=== PATIENT | male | born 1975 | race African-American/Black ===

== ENCOUNTER 2016-05-22 12:40 | Inpatient (IN) | payer MEDICAID ==
[2016-05-22] MEDS ORDERED: SODIUM CHLORIDE 0.9% 3 ML FLUSH FLUSH PRN (12:51)
[2016-05-22 13:15] LABS: AUTOMATED BASOPHIL 0.3 % (0-2); AUTOMATED EOSINOPHIL 4.4 % (0-5); AUTOMATED LYMPH 28.9 % (17-44); AUTOMATED MONOCYTE 10.9 % (3-10); AUTOMATED NEUTROPHIL 55.5 % (45-76); MPV 7.6 fL (7.4-10.4)
--- NOTE | 2016-05-22 13:19 | EDPRACDOC ---
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) - History of Present Illness Exact Onset of Symptoms: Known Onset: [id number] Date Symptoms Started: 05/22/16 Time Symptoms Started: 10:45 Symptoms Started: Reports: Suddenly Symptoms: Reports: Difficulty walking (LEFT LEG AND LEFT ARM AND HAND) Symptoms Description: Constant Symptom Severity: Reports: Unable to performs ADL's Weakness: Left: Arm (WRIST FLEXED AND FINGERS DRAWING IN), Leg (WEAK PLANTAR FLEXION ) Pain Quality: Reports: mild Associated Symptoms: Reports: Weakness (LEFT ARM HAND AND LEG) HPI: PT STATES WOKE UP AROUND 930 THIS AM FELT FINE THEN AROUND 1045 STARTED HAVING DRAWING OF LEFT HAND AND COULDNT SPREAD FINGERS APART OR FLEX OR EXTEND WRIST AND LEFT FOOT WEAKNESS WHEN TRYING TO WALK. PT IS SPEAKING CLEARLY WITHOUT FACIAL PARALYSIS. PT DOES SEEM ANXIOUS AND GETS UPSET WHEN HE CANT MOVE HIS LEFT HAND LIKE NORMAL. <Prerna Park - Last Filed: 05/22/16 15:54> - General Stated Complaint: STROKE SYMPTOMS Time Seen by Provider: 05/22/16 12:51 Allergies/Adverse Reactions: Allergies Allergy/AdvReac Type Severity Reaction Status Date / Time No Known Allergies Allergy Verified 05/22/16 13:28 Home Medications: Ambulatory Orders No Home Medications 05/22/16 ED Past Medical History - History Reviewed Yes Nurses notes reviewed and agree except as marked Travel Outside of [place] in the Last 3 Months?: No - Patient Medical History Neurological History: Reports: Cerebrovascular Accident (2006 IWTH MINOR LEFT SIDED PARALYSIS IN HAND AND LEG) Surgical History: Reports: Other (CARDIAC SURGERY) - Social Medical History Smoking Status: Heavy tobacco smoker (5 or more cigarettes/day or daily pipe/ cigar) ETOH: None Substance Abuse: None Lives With: Spouse Lives In: Home <Prerna Park - Last Filed: 05/22/16 15:54> EDM Review of Systems - Review of Systems ROS Negative Except as Marked: Yes All systems reviewed and were negative except as marked Constitutional: No Symptoms Reported. negative: Fever, Chills, Weakness, Fatigue, Loss of Appetite Eyes: No Symptoms Reported. negative: Redness, Blurred Vision, Double Vision, Discharge, Pain, Light Sensitive, Photophobia Ears: No Symptoms Reported. negative: Pain, Hearing Loss, Drainage, Ear Pulling Throat: No Symptoms Reported. negative: Pain, Swelling Nose: No Symptoms Reported. negative: Congestion, Bleeding, Discharge, Injection, Swelling, Deformity, Ecchymosis, Tender, Abrasion, Laceration Mouth: No Symptoms Reported. negative: Pain, Drooling Respiratory: No Symptoms Reported. negative: Cough, Brassy Cough, Barky Cough, Shortness of Breath, Wheezing, Hemoptysis Cardiovascular: No Symptoms Reported. negative: Chest Pain, Palpitations, Syncope, Edema, Orthopnea, PND, Skin Mottling, Cyanosis Gastrointestinal: No Symptoms Reported. negative: Pain, Constipation, Nausea, Vomiting, Diarrhea, Melena, Formula Intolerance Genitourinary: No Symptoms Reported. negative: Dysuria, Hematuria, Frequency, Discharge, Bleeding, Testicular Pain, Neurological: Other (WEAKNESS OF LEFT ARM HAND AND LEG). negative: Dizziness, Gait Difficulty, Headache, Numbness, Seizure, Speech Difficulty, Weakness Musculoskeletal: No Symptoms Reported. negative: Neck, Chestwall, Ribs, Back, Shoulder, Arm, Elbow, Forearm, Wrist, Hand, Pelvis, Hip, Femur, Knee, Leg, Ankle , Foot Integumentary: No Symptoms Reported. negative: Itching, Rash, Bruising, Wound Allergic/Immunologic: No Symptoms Reported. negative: Hives, Itching Hematologic: No Symptoms Reported. negative: Lymphadenopathy, Easy Bruising, Easy Bleeding Endocrine: No Symptoms Reported. negative: Weight Gain, Weight Loss Psychiatric: No Symptoms Reported. negative: Anxiety, Depression, Hallucinations, Insomnia, Suicidal <Prer[place] Park - Last Filed: 05/22/16 15:54> - Physical Exam Last recorded Vital Signs: Last Vital Signs Temp 98.4 F 05/22/16 13:24 Pulse 92 05/22/16 13:28 Resp 18 05/22/16 13:28 BP 132/80 05/22/16 13:28 Pulse Ox 96 05/22/16 13:28 Oxygen Pulse Oxygen Saturation 96 O2 Device Oxygen Flow Rate Fraction of Inspired Oxygen ( FIO2) <Keri Carr - Last Filed: 05/22/16 15:12> - Physical Exam Constitutional: No apparent distress, Alert (Awake) Oriented to: Time, Person, Place Last recorded Vital Signs: Oxygen Pulse Oxygen Saturation O2 Device Oxygen Flow Rate Fraction of Inspired Oxygen ( FIO2) - HEENT Head: Normal ( normocephalic) Eye Exam: Normal (PERRL, EOMI, Sclera white) Oropharynx: Normal (Pharynx:Moist without exudate,Gums-no swelling) Tympanic Membrane: Normal ENT EAC: Normal TMJ: Normal Nose: No Symptoms Reported (septum midline) Neck: Normal (FROM, trachea at midline) - Respiratory/Cardiovascular Respiratory: Normal - CTA (BBS clear to auscultation without adventitious sounds ) Cardiovascular: Normal (RRR without murmur, gallop or rub) - GI Auscultation: Normal (NABS) Palpation: Normal (Soft,No rebound or guarding, non distended) Tenderness: Non tender Jackson's Sign: Negative - Bladder: Normal - Musculoskeletal Back: Normal (Non-Tender) Extremities: Normal (Normal tone, Pulses 2+ No cyanosis or edema, FROM) - Integumentary Skin: Normal, Warm, Dry Lymphatics: Normal (no adenopathy) - Neurologic Memory Impaired: Normal Motor Function: Abnormal (LEFT ARM HAND AND LEG) Cranial Nerve: Normal (CN II-X11 intact sensation, strength 5/5) Cerebellar: Ataxia (LEFT ARM AND HAND), Past-Pointing (LEFT ARM AND HAND) Mood Description: Anxious Thought: Coherent Perception: Normal <[place] - Last Filed: 05/22/16 15:54> NIH Stroke Scale Initial Evaluation Level of Consciousness: Alert LOC- Question: Answers Both Correctly LOC Commands: Both Task Correctly Best Gaze: Normal Visual: No Visual Loss Facial Palsy: Normal Movement Motor Arm LEFT: Drift (MILD) Motor Arm RIGHT: No Drift Motor Leg LEFT: No Drift Motor Leg RIGHT: No Drift Limb Ataxia: Present in One Limb (LEFT) Sensory: Normal Best Language: No Aphasia Dysarthria: Normal Extinction and Inattention: No Abnormality (Neglect) Score: 2out of42 <Prerna Park - Last Filed: 05/22/16 15:54> - Action Was an Antithrombotic given in the ED?: Yes Is patient a candidate for lytic therapy?: No - Re-evaluation Re-evaluation 2 Re-evaluation Time: 15:14 (NO CHANGE) - Results 05/22/16 13:05 05/22/16 13:05 WBC 7.5 xk/uL (3.8-10.8) 05/22/16 13:05 RBC 5.46 xM/uL (4.70-6.10) 05/22/16 13:05 Hgb 15.0 g/dL (14.0-18.0) 05/22/16 13:05 Hct 45.8 % (42-52) 05/22/16 13:05 MCV 84 fL (80-94) 05/22/16 13:05 MCH 27.5 pg (27-32) 05/22/16 13:05 MCHC 32.8 g/dl (33-36) L 05/22/16 13:05 RDW 13.9 % (11.5-14.5) 05/22/16 13:05 Plt Count 263 xk/uL (130-400) 05/22/16 13:05 MPV 7.6 fL (7.4-10.4) 05/22/16 13:05 Neut % (Auto) 55.5 % (45-76) 05/22/16 13:05 Lymph % (Auto) 28.9 % (17-44) 05/22/16 13:05 [place] % (Auto) 10.9 % (3-10) H 05/22/16 13:05 Eos % (Auto) 4.4 % (0-5) 05/22/16 13:05 Baso % (Auto) 0.3 % (0-2) 05/22/16 13:05 Absolute Neuts (auto) 4.13 xk/uL (1.7-8.2) 05/22/16 13:05 Absolute Lymphs (auto) 2.10 xk/uL (0.65-4.75) 05/22/16 13:05 PT 10.0 SEC (9.2-11.2) 05/22/16 13:05 INR 1.0 05/22/16 13:05 APTT 23.6 SEC (22-35) 05/22/16 13:05 Sodium 143 mEq/L (137-146) 05/22/16 13:05 Potassium 3.6 mEq/L (3.5-5.1) 05/22/16 13:05 Chloride 110 mEq/L (98-107) H 05/22/16 13:05 Carbon Dioxide 24 mMOL/L (22-33) 05/22/16 13:05 Anion Gap 13 mEq/L (8-16) 05/22/16 13:05 BUN 10 MG/DL (9-20) 05/22/16 13:05 Creatinine 0.70 MG/DL (0.66-1.25) 05/22/16 13:05 Estimated GFR (MDRD) > 60 mL/min (>=60) 05/22/16 13:05 Glucose 107 MG/DL (70-99) H 05/22/16 13:05 Calculated Osmolality 274 MOs/Kg (270-290) 05/22/16 13:05 Calcium 9.0 MG/DL (8.4-10.2) 05/22/16 13:05 Corrected Calcium 9.4 MG/DL (8.4-10.2) 05/22/16 13:05 Total Bilirubin 0.5 MG/DL (0.2-1.3) 05/22/16 13:05 AST 22 IU/L (17-59) 05/22/16 13:05 ALT 38 IU/L (21-72) 05/22/16 13:05 Alkaline Phosphatase 92 IU/L (38-126) 05/22/16 13:05 Troponin I < 0.01 ng/mL (<.04) 05/22/16 13:05 Csr-A-Tgjmexbbgly Pept 101 pg/mL (0-450) 05/22/16 13:05 Total Protein 6.6 G/DL (6.3-8.2) 05/22/16 13:05 Albumin 3.6 G/DL (3.5-5.0) 05/22/16 13:05 Urine Color Yellow 05/22/16 13:30 Urine Clarity Clear 05/22/16 13:30 Urine pH 5.0 (5.0-8.0) 05/22/16 13:30 Ur Specific [place] 1.010 (1.003-1.035) 05/22/16 13:30 Urine Protein Neg (NEG/TRACE) 05/22/16 13:30 Urine Glucose (UA) Neg (NEGATIVE) 05/22/16 13:30 Urine Ketones Neg (NEGATIVE) 05/22/16 13:30 Urine Occult Blood Neg (NEG/TRACE) 05/22/16 13:30 Urine Nitrite Neg (NEGATIVE) 05/22/16 13:30 Urine Bilirubin Neg (NEGATIVE) 05/22/16 13:30 Urine Urobilinogen <2.0 MG/DL (0-1) 05/22/16 13:30 Ur Leukocyte Esterase Neg (NEGATIVE) 05/22/16 13:30 Urine RBC 0-2 (0-2) 05/22/16 13:30 Urine Bacteria Few (NEG/FEW) 05/22/16 13:30 Urine Mucus Occ (NEG/OCC) 05/22/16 13:30 Urine Opiates Screen Neg (NEGATIVE) 05/22/16 13:30 Ur Oxycodone Screen Neg (NEGATIVE) 05/22/16 13:30 Urine Methadone Screen Neg (NEGATIVE) 05/22/16 13:30 Ur Barbiturates Screen Neg (NEGATIVE) 05/22/16 13:30 Ur Tricyclics Screen Neg (NEGATIVE) 05/22/16 13:30 Ur Phencyclidine Scrn Neg (NEGATIVE) 05/22/16 13:30 Ur Amphetamines Screen Neg (NEGATIVE) 05/22/16 13:30 U Methamphetamines Scrn Neg (NEGATIVE) 05/22/16 13:30 Urine MDMA Screen Neg (NEGATIVE) 05/22/16 13:30 U Benzodiazepines Scrn Neg (NEGATIVE) 05/22/16 13:30 Urine Cocaine Screen Neg (NEGATIVE) 05/22/16 13:30 Ur THC Screen *positive* (NEGATIVE) H 05/22/16 13:30 Lab Results 05/22/16 05/22/16 05/22/16 13:30 13:30 13:05 WBC RBC Hgb Hct MCV MCH MCHC RDW Plt Count MPV Neut % (Auto) Lymph % (Auto) [place] % (Auto) Eos % (Auto) Baso % (Auto) Absolute Neuts (auto) Absolute Lymphs (auto) PT 10.0 INR 1.0 APTT 23.6 Sodium Potassium Chloride Carbon Dioxide Anion Gap BUN Creatinine Estimated GFR (MDRD) Glucose Calculated Osmolality Calcium Corrected Calcium Total Bilirubin AST ALT Alkaline Phosphatase Troponin I [id number]-Eqfdolixael Pept Total Protein Albumin Urine Color Yellow Urine Clarity Clear Urine pH 5.0 Ur Specific [place] 1.010 Urine Protein Neg Urine Glucose (UA) Neg Urine Ketones Neg Urine Occult Blood Neg Urine Nitrite Neg Urine Bilirubin Neg Urine Urobilinogen <2.0 Ur Leukocyte Esterase Neg Urine RBC 0-2 Urine Bacteria Few Urine Mucus Occ Urine Opiates Screen Neg Ur Oxycodone Screen Neg Urine Methadone Screen Neg Ur Barbiturates Screen Neg Ur Tricyclics Screen Neg Ur Phencyclidine Scrn Neg Ur Amphetamines Screen Neg U Methamphetamines Scrn Neg Urine MDMA Screen Neg U Benzodiazepines Scrn Neg Urine Cocaine Screen Neg Ur THC Screen *positive* H 05/22/16 05/22/16 13:05 13:05 WBC 7.5 RBC 5.46 Hgb 15.0 Hct 45.8 MCV 84 MCH 27.5 MCHC 32.8 L RDW 13.9 Plt Count 263 MPV 7.6 Neut % (Auto) 55.5 Lymph % (Auto) 28.9 [place] % (Auto) 10.9 H Eos % (Auto) 4.4 Baso % (Auto) 0.3 Absolute Neuts (auto) 4.13 Absolute Lymphs (auto) 2.10 PT INR APTT Sodium 143 Potassium 3.6 Chloride 110 H Carbon Dioxide 24 Anion Gap 13 BUN 10 Creatinine 0.70 Estimated GFR (MDRD) > 60 Glucose 107 H Calculated Osmolality 274 Calcium 9.0 Corrected Calcium 9.4 Total Bilirubin 0.5 AST 22 ALT 38 Alkaline Phosphatase 92 Troponin I < 0.01 Tmj-K-Yiqyjprzzgl Pept 101 Total Protein 6.6 Albumin 3.6 Urine Color Urine Clarity Urine pH Ur Specific [place] Urine Protein Urine Glucose (UA) Urine Ketones Urine Occult Blood Urine Nitrite Urine Bilirubin Urine Urobilinogen Ur Leukocyte Esterase Urine RBC Urine Bacteria Urine Mucus Urine Opiates Screen Ur Oxycodone Screen Urine Methadone Screen Ur Barbiturates Screen Ur Tricyclics Screen Ur Phencyclidine Scrn Ur Amphetamines Screen U Methamphetamines Scrn Urine MDMA Screen U Benzodiazepines Scrn Urine Cocaine Screen Ur THC Screen <Keri Carr N - Last Filed: 05/22/16 15:12> - Differential Diagnosis CVA, Electrolyte disorder, Hypoglycemia, Medication toxicity, Drug overdose, SAH , TIA - Action Has patient received an Antithrombotic in the last 24hrs?: No Stroke Discharge Education: Risk Factors, Seeking Emerg. Treatment, Warning Signs/Symptoms, Medications at Discharge, Follow Up after Discharge - Re-evaluation Re-evaluation 1 Re-evaluation Time: 15:00 (NO CHANGE IN SYMPTOMS, PERSISTENT LEFT UPPER AND LOWER EXTREMITY WEAKNESS) - Results 05/22/16 13:05 05/22/16 13:05 - EKG EKG #1 EKG Time: 13:08 -: Yes EKG interpreted by me Rate: bpm: 93 [place]: Normal Rhythm: NSR Block: None Hypertrophy: None ST: Normal - Diagnostic Imaging CT HEAD Image interpreted by: Radiologist IMPRESSION: Normal head CT. <Prer[place] - Last Filed: 05/22/16 15:54> - Departure Disposition: Admit IP To This Hospital Education/Counseling Given To: Patient, Family Member Education/Counseling Given Regarding: Diagnosis, Treatment, Prognosis Decision to Admit Time: 15:16 Decision to admit date: 05/22/16 Decision to admit: from ED - Physician Consulted Hospitalist Time Called: 15:13 Provider Called: Israel Wilder Time Client Resource Specialist Returned Call: 15:16 <Keri Carr - Last Filed: 05/22/16 15:12> <Prer[place] - Last Filed: 05/22/16 15:54> - Departure Final Diagnosis: CVA - cerebrovascular accident due to cerebral artery occlusion Instructions: Stroke (GEN) Referrals: Kaylen Mcnulty DIRECTOR OF IT OPERATIONS [Primary Care Provider] - As Needed
--- NOTE | 2016-05-22 13:25 | DIRPT ---
CLINICAL DATA: Left arm weakness. EXAM: CT HEAD WITHOUT CONTRAST TECHNIQUE: Contiguous axial images were obtained from the base of the skull through the vertex without intravenous contrast. COMPARISON: CT scan of June 01, 2010. FINDINGS: Bony calvarium appears intact. No mass effect or midline shift is noted. Ventricular size is within normal limits. There is no evidence of mass lesion, hemorrhage or acute infarction. IMPRESSION: Normal head CT. Electronically Signed By: Rodrigue Wilder Jr, M.D. On: 05/22/2016 13:22
[2016-05-22 13:26] LABS: BLOOD UREA NITROGEN 10 MG/DL (9-20); CALC CORRECTED 9.4 MG/DL (8.4-10.2); CALCULATED OSMOLALITY 274 MOs/Kg (270-290); CHLORIDE 110 mEq/L (98-107); GLUCOSE 107 MG/DL (70-99); PARTIAL THROMB. TIME 23.6 SEC (22-35); SODIUM LEVEL 143 mEq/L (137-146); TOTAL PROTEIN 6.6 G/DL (6.3-8.2)
[2016-05-22 13:38] LABS: ALL NEG? NO
--- NOTE | 2016-05-22 13:43 | DIRPT ---
CLINICAL DATA: Weakness EXAM: PORTABLE CHEST 1 VIEW COMPARISON: 02/10/2014 FINDINGS: The heart size and mediastinal contours are within normal limits. Both lungs are clear. The visualized skeletal structures are unremarkable. IMPRESSION: No active disease. Electronically Signed By: Baltazar Napier M.D. On: 05/22/2016 13:40
[2016-05-22 13:45] LABS: MDMA* NEG (NEGATIVE); METHAMPHETAMINES NEG (NEGATIVE)
[2016-05-22 13:46] LABS: OXYCODONE NEG (NEGATIVE)
[2016-05-22 14:19] LABS: LEUKOCYTES/URINE NEG (NEGATIVE); NITRITE/URINE NEG (NEGATIVE); RBC/URINE 0-2 (0-2); URINE OCCULT BLOOD NEG (NEG/TRACE)
[2016-05-22] MEDS ORDERED: ASPIRIN 300 MG SUPP PR ONE (14:55)
[2016-05-22] MEDS ORDERED: ONDANSETRON HCL 4 MG/2 ML VIAL IV PRN (15:38)
[2016-05-22] MEDS ORDERED: ACETAMINOPHEN 325 MG/TAB TABLET PO PRN (15:38)
[2016-05-22] MEDS ORDERED: ZOLPIDEM TARTRATE 5 MG TAB PO PRN (15:39)
--- NOTE | 2016-05-22 16:15 | HISTPHYS ---
- Chief Complaint Left-sided weakness, tingling - History of Present Illness This is a healthy 40-year-old male with a prior history of suspected CVA in 2006 currently not on any medications who is being admitted to the hospital this afternoon due to recurrent left arm tingling and weakness, as well as gait instability. The patient tells me that he has been in his usual state of health , without any significant neurologic deficits, when he woke up this morning he had some tingling in his left hand, and over the next hour or so it progressed to weakness and flexion of his fingers, which she could extend actively with his right hand, but not passively with his left hand. Interestingly, he tells me that it is a similar thing happened in 2006, at which time he was admitted to [facility] and was found on MRI to have "a pattern" on the left side of his brain that could predispose him to strokes at any time. He also says that he had some sort of a study where they put a probe down his mouth to make sure that he did have a hole in his heart. He says that he was not placed on any medication at the time, and did follow up with a neurologist as an outpatient once, but after was losses insurance later that year, so has not seen a neurologist since 2006. Denies any chest pain, shortness of breath, nausea, vomiting, fevers, chills, abdominal pain, diarrhea or constipation. No rashes on the skin, no sick contacts. No drug IV abuse. No therapies tried prior to arrival, patient was not given tPA. - Medical History Neurological History: Reports: Cerebrovascular Accident (2006 IWTH MINOR LEFT SIDED PARALYSIS IN HAND AND LEG) - Surgical History Reports: Other (CARDIAC SURGERY) - Medictions/Allergies Allergies No Known Allergies Allergy (Verified 05/22/16 13:28) Home Medications No Home Medications 05/22/16 - Social History Smoking Status: Heavy tobacco smoker (5 or more cigarettes/day or daily pipe/ cigar) - Review of Systems Yes All systems reviewed and were negative except as marked (And as mentioned in the history of present illness above.) - Physical Exam Vital Signs: Initial Vitals Temperature 98.4 F 05/22/16 13:24 Pulse Rate 101 05/22/16 13:24 Respiratory Rate 21 05/22/16 13:24 Blood Pressure 136/78 05/22/16 13:24 Pulse Oxygen Saturation 98 05/22/16 13:24 Constitutional: Alert (Awake, Fully oriented, well appearing. No apparent distress) Oriented to: Time, Person, Place - HEENT Head: Normal (normocephalic,atraumatic, trachea midline) Eye: Normal (EOMI, Sclera white) Oropharynx: Normal (moist) Nose: No Symptoms Reported (without discharge or bleeding) Respiratory: Normal - CTA (Clear to auscultation bilaterally, no wheezing,rales or rhonchi. No use of accessory muscles) Cardiovascular: Normal (RRR, no murmurs, rubs or gallops) - GI Palpation: Normal (soft, non distended and nontender) - Musculoskeletal Extremities: Normal (normal tone, no cyanosis or edema) - Integumentary Skin: Normal (no rashes or lesions) - Neurologic Cranial Nerve: Normal (CN II-XII intact) Mood Description: Normal (Fully oriented and appropiate affect) Patient was not ambulated, though he does seem to have 5/5 strength in his lower extremities. Sensation is intact in lower extremities. He has subjective numbness in the left hand, especially on the lateral side including the thumb and index finger. Left hand can be passively open completely with full extension of the fingers, however he is unable to extend them on his own, and they rest in a slightly flexed position. No facial droop, slurred speech. - Focused CV Perfusion Exam Vital Signs: Last Vital Signs Temp 98.4 F 05/22/16 13:24 Pulse 90 05/22/16 14:59 Resp 18 05/22/16 14:59 BP 138/75 05/22/16 14:59 Pulse Ox 97 05/22/16 14:59 - Lab Results Laboratory Tests 05/22/16 05/22/16 05/22/16 13:05 13:05 13:05 WBC 7.5 Hgb 15.0 INR 1.0 Potassium 3.6 Chloride 110 H BUN 10 Creatinine 0.70 Alkaline Phosphatase 92 Troponin I < 0.01 - Diagnostic Findings Chest x-ray and CT of the head done in the emergency department this afternoon without any acute abnormality. - Assessment (1) Tingling of left upper extremity R20.2 - PARESTHESIA OF SKIN Acute Patient tells a strange story of perhaps having a CVA in the past, could also be some other neurologic phenomenon such as plaques or evidence of multiple scrotal or Drum[place]. Although the fact that he had what sounds like a transesophageal echo make a sound like they were looking for embolic source of his prior stroke. In any case, CT head in the emergency department today does not show evidence of any prior strokes or any other abnormality. Will admit to the hospital using stroke evidence based care order set, keep the patient NPO until seen by speech therapy, will also have him be seen by physical and occupational therapies. He was given the aspirin rectally in the emergency department, will continue aspirin daily, as well as a low-dose statin. Will check lipids, carotid Dopplers and an MRI in the morning. Depending on findings of the MRI, could consider ECHO of the heart. Could also consider Neurology consultation, have also ordered records from [facility] where he was diagnosed with his previous intracranial abnormality. (2) CVA - cerebrovascular accident due to cerebral artery occlusion I63.50 - CEREB INFRC DUE TO UNSP OCCLS OR STENOS OF UNSP CEREB ARTERY Acute Case Care Discussed with: Patient, Family, Nursing Staff Total Time: 42
[2016-05-22 17:09] VITALS: BMI 22.8
[2016-05-22] MEDS: ATORVASTATIN 20 MG TAB PO SCH ×2 (17:53→18:21)
[2016-05-22] MEDS: SODIUM CHLORIDE 0.9% 3 ML FLUSH FLUSH SCH (17:54)
[2016-05-22] MEDS ORDERED: ENOXAPARIN 40 MG/0.4 ML PFS SQ SCH (18:00)
[2016-05-22] MEDS ORDERED: Vaccine Screening Complete SCH (18:00)
[2016-05-23 04:55] LABS: MPV 8.4 fL (7.4-10.4)
[2016-05-23 05:06] LABS: BLOOD UREA NITROGEN 9 MG/DL (9-20); CALCIUM 9.2 MG/DL (8.4-10.2); CALCULATED OSMOLALITY 269 MOs/Kg (270-290); CHLORIDE 107 mEq/L (98-107); GLUCOSE 81 MG/DL (70-99); SODIUM LEVEL 141 mEq/L (137-146)
[2016-05-23] MEDS: SODIUM CHLORIDE 0.9% 3 ML FLUSH FLUSH SCH (06:22)
[2016-05-23] MEDS ORDERED: PNEUMOCOCCAL 0.5 ML VIAL IM ONE (08:00)
[2016-05-23] MEDS ORDERED: FLU VACCINE (Afluria) 0.5 ML DOSE IM ONE (08:00)
--- NOTE | 2016-05-23 08:26 | DIRPT ---
CLINICAL DATA: Left-sided weakness EXAM: BILATERAL CAROTID DUPLEX ULTRASOUND TECHNIQUE: Saldaña scale imaging, color Doppler and duplex ultrasound were performed of bilateral carotid and vertebral arteries in the neck. COMPARISON: None. FINDINGS: Criteria: Quantification of carotid stenosis is based on velocity parameters that correlate the residual internal carotid diameter with NASCET-based stenosis levels, using the diameter of the distal internal carotid lumen as the denominator for stenosis measurement. The following velocity measurements were obtained: RIGHT ICA: 80 cm/sec CCA: 146 cm/sec SYSTOLIC ICA/CCA RATIO: 0.6 DIASTOLIC ICA/CCA RATIO: 1.1 ECA: 91 cm/sec LEFT ICA: 79 cm/sec CCA: 144 cm/sec SYSTOLIC ICA/CCA RATIO: 0.6 DIASTOLIC ICA/CCA RATIO: 1.0 ECA: 81 cm/sec RIGHT CAROTID ARTERY: Little if any plaque in the bulb. Low resistance internal carotid Doppler pattern. RIGHT VERTEBRAL ARTERY: Antegrade. Normal Doppler pattern. LEFT CAROTID ARTERY: Minimal soft plaque in the bulb. Low resistance internal carotid Doppler pattern. LEFT VERTEBRAL ARTERY: Antegrade. Normal Doppler pattern. Additional findings: Thyroid gland is heterogeneous bilaterally. There is a 6 x 6 x 11 mm hypoechoic nodule in the right lower pole posteriorly. IMPRESSION: Less than 50% stenosis in the right and left internal carotid arteries. There is an 11 mm hypoechoic nodule in the right lower pole of the thyroid gland. A complete thyroid ultrasound was not performed. Complete thyroid ultrasound is recommended. Recommendations concerning the single nodule are as follows: Findings do not meet current SRU consensus criteria for biopsy. Follow-up by clinical exam is recommended. If patient has known risk factors for thyroid carcinoma, consider follow-up ultrasound in 12 months. If patient is clinically hyperthyroid, consider nuclear medicine thyroid uptake and scan.Reference: Management of Thyroid Nodules Detected at [place]: Society of Radiologists in Ultrasound Consensus Conference Statement. Radiology 2005; [id number]. Electronically Signed By: Baltazar Napier M.D. On: 05/23/2016 08:23
[2016-05-23 08:37] VITALS: TEMP 98
--- NOTE | 2016-05-23 10:11 | GENMEDPROG ---
Chief Complaint: Admitted with possible CVA Subjective Note: 40-year-old gentleman history of prior stroke records are pending from [facility]. Had a episode yesterday similar to his previous his left upper extremity is having some difficulties today. He is awaiting physical therapy evaluation. Carotid Dopplers revealed an abnormality of his thyroid we are checking his tsh and ordering a dedicated thyroid ultrasound. Notes Reviewed: Yes Events from last night noted and discussed with Clinical Staff Current Medication List: Reviewed Currently: Reports: Other (weak LUE) DVT Prophylaxis: Yes - Physical Examination Vital Signs and I&O: Last Vital Signs Temp 98 F 05/23/16 08:37 Pulse 80 05/23/16 08:37 Resp 20 05/23/16 08:37 BP 124/56 L 05/23/16 08:37 Pulse Ox 96 05/23/16 08:37 Oxygen Pulse Oxygen Saturation 96 O2 Device Room Air Oxygen Flow Rate Fraction of Inspired Oxygen ( FIO2) Intake & Output 05/20/16 05/21/16 05/22/16 05/23/16 23:59 23:59 23:59 23:59 Intake Total 205 Output Total 200 300 Balance -200 -95 Patient's weight 78.727 kg 78.471 kg General: Alert, Oriented x3, No acute distress, Well appearing, Well nourished HEENT: Normal (Normocephalic, atraumatic;EOMI.Sclera white, Nares patent, without discharge or bleeding. No oropharyngeal lesions or erythema. Mucous membranes are dry.) Neck: Non-tender, Full range of motion, Normal Trachea alignment, Normal inspection (No cervical lymphadenopathy. No supraclavicular lymphadenopathy.), No Masses palpable, Supple Respiratory: Normal - CTA (Clear to auscultation bilaterally, no wheezing,rales or rhonchi. No use of accessory muscles) Cardiovascular: Regular rate and rhythm (No bradycardia or tachycardia), Normal S1, No Gallops,Rubs/Murmurs, Normal S2, Good Pedal Pulses (DP pulses 2+ bilaterally) GI: Normal bowel sounds Extremities/Musculoskeletal: negative: Edema, Clubbing, Motor 5/5 throughout Skin: Warm,Dry and Intact, No rashes, No significant lesion Neurological: negative: Strength at 5/5 X4 ext (LUE weakness) Psych/Mental Status: Appropriate, Normal Affect Lab/DI/Studies Reviewed: Laboratory Results - last 24 hr 05/22/16 05/22/16 05/22/16 13:05 13:05 13:05 WBC 7.5 RBC 5.46 Hgb 15.0 Hct 45.8 MCV 84 MCH 27.5 MCHC 32.8 L RDW 13.9 Plt Count 263 MPV 7.6 Neut % (Auto) 55.5 Lymph % (Auto) 28.9 Meriwether % (Auto) 10.9 H Eos % (Auto) 4.4 Baso % (Auto) 0.3 Absolute Neuts (auto) 4.13 Absolute Lymphs (auto) 2.10 ESR PT 10.0 INR 1.0 APTT 23.6 Sodium 143 Potassium 3.6 Chloride 110 H Carbon Dioxide 24 Anion Gap 13 BUN 10 Creatinine 0.70 Estimated GFR (MDRD) > 60 Glucose 107 H Calculated Osmolality 274 Calcium 9.0 Corrected Calcium 9.4 Total Bilirubin 0.5 AST 22 ALT 38 Alkaline Phosphatase 92 Troponin I < 0.01 [id number]-Pkcibkuuyeh Pept 101 Total Protein 6.6 Albumin 3.6 Triglycerides Cholesterol LDL Cholesterol, Calc VLDL Cholesterol, Calc HDL Cholesterol Cholesterol/HDL Ratio Urine Color Urine Clarity Urine pH Ur Specific Carmichael Urine Protein Urine Glucose (UA) Urine Ketones Urine Occult Blood Urine Nitrite Urine Bilirubin Urine Urobilinogen Ur Leukocyte Esterase Urine RBC Urine Bacteria Urine Mucus Urine Opiates Screen Ur Oxycodone Screen Urine Methadone Screen Ur Barbiturates Screen Ur Tricyclics Screen Ur Phencyclidine Scrn Ur Amphetamines Screen U Methamphetamines Scrn Urine MDMA Screen U Benzodiazepines Scrn Urine Cocaine Screen Ur THC Screen 05/22/16 05/22/16 05/22/16 13:05 13:30 13:30 WBC RBC Hgb Hct MCV MCH MCHC RDW Plt Count MPV Neut % (Auto) Lymph % (Auto) Meriwether % (Auto) Eos % (Auto) Baso % (Auto) Absolute Neuts (auto) Absolute Lymphs (auto) ESR 1 PT INR APTT Sodium Potassium Chloride Carbon Dioxide Anion Gap BUN Creatinine Estimated GFR (MDRD) Glucose Calculated Osmolality Calcium Corrected Calcium Total Bilirubin AST ALT Alkaline Phosphatase Troponin I Tpi-A-Eawnvgwxpim Pept Total Protein Albumin Triglycerides Cholesterol LDL Cholesterol, Calc VLDL Cholesterol, Calc HDL Cholesterol Cholesterol/HDL Ratio Urine Color Yellow Urine Clarity Clear Urine pH 5.0 Ur Specific Carmichael 1.010 Urine Protein Neg Urine Glucose (UA) Neg Urine Ketones Neg Urine Occult Blood Neg Urine Nitrite Neg Urine Bilirubin Neg Urine Urobilinogen <2.0 Ur Leukocyte Esterase Neg Urine RBC 0-2 Urine Bacteria Few Urine Mucus Occ Urine Opiates Screen Neg Ur Oxycodone Screen Neg Urine Methadone Screen Neg Ur Barbiturates Screen Neg Ur Tricyclics Screen Neg Ur Phencyclidine Scrn Neg Ur Amphetamines Screen Neg U Methamphetamines Scrn Neg Urine MDMA Screen Neg U Benzodiazepines Scrn Neg Urine Cocaine Screen Neg Ur THC Screen *positive* H 05/22/16 05/22/16 05/23/16 17:05 19:50 03:50 WBC RBC Hgb Hct MCV MCH MCHC RDW Plt Count MPV Neut % (Auto) Lymph % (Auto) Meriwether % (Auto) Eos % (Auto) Baso % (Auto) Absolute Neuts (auto) Absolute Lymphs (auto) ESR PT INR APTT Sodium 141 Potassium 4.0 Chloride 107 Carbon Dioxide 26 Anion Gap 12 BUN 9 Creatinine 0.70 Estimated GFR (MDRD) > 60 Glucose 81 Calculated Osmolality 269 L Calcium 9.2 Corrected Calcium Total Bilirubin AST ALT Alkaline Phosphatase Troponin I < 0.01 < 0.01 Aac-Y-Kkddqjwtahi Pept Total Protein Albumin Triglycerides 90 Cholesterol 152 LDL Cholesterol, Calc 94.0 VLDL Cholesterol, Calc 18.0 HDL Cholesterol 40.0 Cholesterol/HDL Ratio 3.8 Urine Color Urine Clarity Urine pH Ur Specific Carmichael Urine Protein Urine Glucose (UA) Urine Ketones Urine Occult Blood Urine Nitrite Urine Bilirubin Urine Urobilinogen Ur Leukocyte Esterase Urine RBC Urine Bacteria Urine Mucus Urine Opiates Screen Ur Oxycodone Screen Urine Methadone Screen Ur Barbiturates Screen Ur Tricyclics Screen Ur Phencyclidine Scrn Ur Amphetamines Screen U Methamphetamines Scrn Urine MDMA Screen U Benzodiazepines Scrn Urine Cocaine Screen Ur THC Screen 05/23/16 03:50 WBC 7.8 RBC 5.32 Hgb 15.0 Hct 44.9 MCV 84 MCH 28.1 MCHC 33.3 RDW 13.6 Plt Count 252 MPV 8.4 Neut % (Auto) Lymph % (Auto) Meriwether % (Auto) Eos % (Auto) Baso % (Auto) Absolute Neuts (auto) Absolute Lymphs (auto) ESR PT INR APTT Sodium Potassium Chloride Carbon Dioxide Anion Gap BUN Creatinine Estimated GFR (MDRD) Glucose Calculated Osmolality Calcium Corrected Calcium Total Bilirubin AST ALT Alkaline Phosphatase Troponin I Bqy-N-Reeaxvithiu Pept Total Protein Albumin Triglycerides Cholesterol LDL Cholesterol, Calc VLDL Cholesterol, Calc HDL Cholesterol Cholesterol/HDL Ratio Urine Color Urine Clarity Urine pH Ur Specific Carmichael Urine Protein Urine Glucose (UA) Urine Ketones Urine Occult Blood Urine Nitrite Urine Bilirubin Urine Urobilinogen Ur Leukocyte Esterase Urine RBC Urine Bacteria Urine Mucus Urine Opiates Screen Ur Oxycodone Screen Urine Methadone Screen Ur Barbiturates Screen Ur Tricyclics Screen Ur Phencyclidine Scrn Ur Amphetamines Screen U Methamphetamines Scrn Urine MDMA Screen U Benzodiazepines Scrn Urine Cocaine Screen Ur THC Screen BILATERAL CAROTID DUPLEX ULTRASOUND TECHNIQUE: Saldaña scale imaging, color Doppler and duplex ultrasound were performed of bilateral carotid and vertebral arteries in the neck. COMPARISON: None. FINDINGS: Criteria: Quantification of carotid stenosis is based on velocity parameters that correlate the residual internal carotid diameter with NASCET-based stenosis levels, using the diameter of the distal internal carotid lumen as the denominator for stenosis measurement. The following velocity measurements were obtained: RIGHT ICA: 80 cm/sec CCA: 146 cm/sec SYSTOLIC ICA/CCA RATIO: 0.6 DIASTOLIC ICA/CCA RATIO: 1.1 ECA: 91 cm/sec LEFT ICA: 79 cm/sec CCA: 144 cm/sec SYSTOLIC ICA/CCA RATIO: 0.6 DIASTOLIC ICA/CCA RATIO: 1.0 ECA: 81 cm/sec RIGHT CAROTID ARTERY: Little if any plaque in the bulb. Low resistance internal carotid Doppler pattern. RIGHT VERTEBRAL ARTERY: Antegrade. Normal Doppler pattern. LEFT CAROTID ARTERY: Minimal soft plaque in the bulb. Low resistance internal carotid Doppler pattern. LEFT VERTEBRAL ARTERY: Antegrade. Normal Doppler pattern. Additional findings: Thyroid gland is heterogeneous bilaterally. There is a 6 x 6 x 11 mm hypoechoic nodule in the right lower pole posteriorly. IMPRESSION: Less than 50% stenosis in the right and left internal carotid arteries. There is an 11 mm hypoechoic nodule in the right lower pole of the thyroid gland. A complete thyroid ultrasound was not performed. Complete thyroid ultrasound is recommended. Recommendations concerning the single nodule are as follows: Findings do not meet current SRU consensus criteria for biopsy. Follow-up by clinical exam is recommended. If patient has known risk factors for thyroid carcinoma, consider follow-up ultrasound in 12 months. If patient is clinically hyperthyroid, consider nuclear medicine thyroid uptake and scan.Reference: Management of Thyroid Nodules Detected at US: Society of Radiologists in Ultrasound Consensus Conference Statement. Radiology 2005; 237:794-800. Electronically Signed By: Baltazar Napier M.D. On: 05/23/2016 08:23 - Plan Check TFTs checked thyroid ultrasound. Await MRI results. PT OT evaluation. Disposition Plan: Hopefully home Case Care Discussed with: Patient, Nursing Staff Education/Counseling Given To: Patient Education/Counseling Given Regarding: Diagnosis, Treatment, Prognosis, Follow Up , Disposition Plan Total Time: 45 minutes Critical Care: No Couseling Time (>50% in counseling/coordination): No
[2016-05-23 10:22] LABS: hTSH < 0.02 uIU/mL (0.5-4.67)
[2016-05-23 10:43] LABS: FREE T4 2.57 ng/dL (0.78-2.19)
[2016-05-23 11:56] VITALS: BP 132/76
[2016-05-23 15:00] VITALS: PULSE 90
--- NOTE | 2016-05-23 15:13 | DIRPT ---
CLINICAL DATA: 40-year-old male with left-sided weakness (left arm and wrist) upon waking yesterday. Subsequent encounter. EXAM: MRI HEAD WITHOUT AND WITH CONTRAST TECHNIQUE: Multiplanar, multiecho pulse sequences of the brain and surrounding structures were obtained without and with intravenous contrast. CONTRAST: 15 cc MultiHance. COMPARISON: 05/22/2016 CT. FINDINGS: No acute infarct. Remote posterior right frontal lobe infarct with encephalomalacia. No intracranial hemorrhage. No intracranial mass or abnormal enhancement. No hydrocephalus. Major intracranial vascular structures are patent. Orbital structures within normal limits. Polypoid opacification maxillary sinuses greater on left with 1.8 cm polypoid structure with may represent a retention cyst. Cervical medullary junction and pineal region unremarkable. Small pituitary gland probably an incidental finding. IMPRESSION: No acute infarct or intracranial hemorrhage. Remote small to moderate-size posterior right frontal lobe infarct with encephalomalacia. No intracranial mass or abnormal enhancement. Polypoid opacification maxillary sinuses greater on left with 1.8 cm polypoid structure with may represent a retention cyst. Electronically Signed By: Michael Del Rosario M.D. On: 05/23/2016 15:10
--- NOTE | 2016-05-23 15:27 | PCM.DCS92 ---
- Final/Secondary Discharge Diagnosis (1) CVA - cerebrovascular accident due to cerebral artery occlusion Ruled-out I63.50 - CEREB INFRC DUE TO UNSP OCCLS OR STENOS OF UNSP CEREB ARTERY Present on Admission: Yes Plan/Goal/Comment: MRI fails to reveal a new stroke. (2) Tingling of left upper extremity Acute R20.2 - PARESTHESIA OF SKIN Present on Admission: Yes Comment: Patient tells a strange story of perhaps having a CVA in the past, could also be some other neurologic phenomenon such as plaques or evidence of multiple scrotal or [place]. Although the fact that he had what sounds like a transesophageal echo make a sound like they were looking for embolic source of his prior stroke. In any case, CT head in the emergency department today does not show evidence of any prior strokes or any other abnormality. Will admit to the hospital using stroke evidence based care order set, keep the patient NPO until seen by speech therapy, will also have him be seen by physical and occupational therapies. He was given the aspirin rectally in the emergency department, will continue aspirin daily, as well as a low-dose statin. Will check lipids, carotid Dopplers and an MRI in the morning. Depending on findings of the MRI, could consider ECHO of the heart. Could also consider Neurology consultation, have also ordered records from [facility] where he was diagnosed with his previous intracranial abnormality. Plan/Goal/Comment: MRI did show old stroke will discharge patient home as no new stroke is noted but he will require outpatient physical therapy. Discharge Disposition: Home Discharge Condition: Stable Cognitive Discharge Status: Unimpaired Fuctional Discharge Status: Independent Physician Follow up/Referrals: Kaylen Mcnulty, [place] [Primary Care Provider] - One Week New Prescriptions: Aspirin (Enteric Coated) [Halfprin] 81 mg PO DAILYWM #100 tablet Atorvastatin Calcium [Lipitor] 20 mg PO DAILY@1800 #30 tablet Discharge Home Medication List Aspirin (Enteric Coated) [Halfprin] 81 mg PO DAILYWM #100 tablet 05/23/16 [Rx Last Taken Unknown] Atorvastatin Calcium [Lipitor] 20 mg PO DAILY@1800 #30 tablet 05/23/16 [Rx Last Taken Unknown] O2 Device: Room Air Diet at Discharge: Heart Healthy Activity: No Restrictions Call Office For: Worsening Symptoms, Fever over 100.5, Pain Uncontrolled By Meds Discontinue use of:: All Types of Tobacco - DC Summary Notes Hospital Course Note:: Discharge summary on patient named DANIEL MARQUIS admitted to [facility] on 05/22/16 by Ricky Vivar MD. Date of discharge is []. Patient presented with signs and symptoms consistent with acute CVA. CT was unremarkable physical examination unremarkable however his physical therapy evaluation was somewhat odd. He did have some weakness in his left upper extremities plan is for him to do outpatient occupational therapy and physical therapy. MRI did not show an acute cerebral vascular accident and therefore patient is stable to discharge home. Given his prior stroke noted on MRI will start him on atorvastatin an aspirin daily. Total Time: 45 min Code: [id number] (>30min.) - Physical Exam Vital Signs: Last Vital Signs Temp 98 F 05/23/16 11:56 Pulse 90 05/23/16 14:59 Resp 20 05/23/16 11:56 BP 132/76 05/23/16 11:56 Pulse Ox 96 05/23/16 11:56 Oxygen Pulse Oxygen Saturation 96 O2 Device Room Air Oxygen Flow Rate Fraction of Inspired Oxygen ( FIO2) Constitutional: Alert (Awake, Fully oriented, well appearing. No apparent distress) Oriented to: Time, Person, Place - HEENT Head: Normal (normocephalic,atraumatic, trachea midline) Eye: Normal (EOMI, Sclera white) Oropharynx: Normal (moist) Nose: No Symptoms Reported (without discharge or bleeding) - Respiratory/Cardiovascular Respiratory: Normal - CTA (Clear to auscultation bilaterally, no wheezing,rales or rhonchi. No use of accessory muscles) - GI Palpation: Normal (soft, non distended and nontender) - Musculoskeletal Extremities: Normal (normal tone, no cyanosis or edema) - Integumentary Skin: Normal (no rashes or lesions) - Neurologic Mood Description: Normal (Fully oriented and appropiate affect) - Other Exam Other Exam Findings: MRI of head: IMPRESSION: No acute infarct or intracranial hemorrhage. Remote small to moderate-size posterior right frontal lobe infarct with encephalomalacia. No intracranial mass or abnormal enhancement. Polypoid opacification maxillary sinuses greater on left with 1.8 cm polypoid structure with may represent a retention cyst. Electronically Signed By: Michael Del Rosario M.D. On: 05/23/2016 15:10
== END 2016-05-23 16:16 | disposition home or self-care (01) | DRG 69 ==
LOC: ED 12:40 → PCU 15:39
PROVIDERS: ADMIT Internal Medicine; ATTEND Hospitalist
DX: G45.9 Transient cerebral ischemic attack, unspecified (principal); I69.954 Hemiplegia and hemiparesis following unspecified cerebrovascular disease affecting left non-dominant side; F17.210 Nicotine dependence, cigarettes, uncomplicated; Z23 Encounter for immunization
CPT/HCPCS: 36415; 70450; 70553; 71010; 80048; 80053; 80061; 80307; 81001; 83880; 84439; 84443; 84481; 84484; 85025; 85027; 85610; 85651; 85730; 90471; 90656; 90732; 93005; 93880; 96372; 97162; 99285; A9577; J1650; J3490